=== PATIENT | male | born 1965 | race Caucasian/White ===

== ENCOUNTER 2016-06-18 17:10 | Emergency (ER) | payer BC ==
[~2016-06-18 17:10] MED LIST: HYDROCODONE 5MG PO; NAMENDA10 MG; PHENERGAN PO; TAMIFLU75 M1 PO; VOLTAREN75 MG PO
== END 2016-06-18 17:52 | disposition home or self-care (01) ==
LOC: SED 17:10
DX: S39.012A Strain of muscle, fascia and tendon of lower back, initial encounter (principal); Z90.49 Acquired absence of other specified parts of digestive tract; X50.9XXA Other and unspecified overexertion or strenuous movements or postures, initial encounter
CPT/HCPCS: 99282